=== PATIENT | female | born 1970 | race Hispanic/Latino ===

== ENCOUNTER 2022-10-21 06:16 | Day surgery (SDC) | payer OTHER, MEDICARE ==
[~2022-10-21] VITALS: Ht 157.5 cm; Wt 84.8 kg
[~2022-10-21 06:16] MED LIST: ESCI-8 PO; GABA-533 PO; QUET50TA24 PO; ROSU20TA31 PO; TAMO20TA4 PO; TRAM50TA4 PO; VITAMIN D; [UNRECOGNIZED DRUG - OTHER]
[2022-10-21 07:00] VITALS: BP 110/78
[2022-10-21] MEDS ORDERED: PHENYLEPHRINE HCL 10 MG/ML 1ML VIAL IV ONE (07:29)
[2022-10-21] MEDS ORDERED: PROPOFOL 10 MG/ML 20ML VIAL IV ONE ×3 (07:34→09:56)
[2022-10-21] MEDS ORDERED: LIDOCAINE PF 100MG/5ML (2%) SYRINGE 5ML ONE (07:34)
[2022-10-21] MEDS ORDERED: 0.9%NACL 1000ML 1,000 ML IV ONE (11:46)
== END 2022-10-21 10:51 | disposition home or self-care (01) ==
LOC: DAH 06:16 → ENDO 06:16
PROVIDERS: ATTEND Student in an Organized Health Care Education/Training Program
DX: Z12.11 Encounter for screening for malignant neoplasm of colon (principal); Z20.822 Contact with and (suspected) exposure to COVID-19; K21.00 Gastro-esophageal reflux disease with esophagitis, without bleeding; K63.5 Polyp of colon; K63.89 Other specified diseases of intestine; E78.5 Hyperlipidemia, unspecified; M19.90 Unspecified osteoarthritis, unspecified site; F41.9 Anxiety disorder, unspecified; F32.A Depression, unspecified; G43.909 Migraine, unspecified, not intractable, without status migrainosus; Z85.3 Personal history of malignant neoplasm of breast; Z90.710 Acquired absence of both cervix and uterus; Z98.890 Other specified postprocedural states; Z98.891 History of uterine scar from previous surgery
CPT/HCPCS: 87426; 43235; 45380; J7030 ×2; J2001; J2704 ×3; J2370; A4620; A4215 ×2; A4223; A4657; A7002; A4222; A4221; A4663; A4606; G9654